=== PATIENT | female | born 1990 | race Caucasian/White ===

== ENCOUNTER 2016-09-22 23:49 | Emergency (ER) | payer MEDICAID ==
[~2016-09-22] VITALS: Ht 154.9 cm; Wt 85.0 kg
[~2016-09-22 23:49] MED LIST: CIPR500T4 PO; HYDR-762 PO; HYDR-906 PO; ONDA4TAB14 PO; ONDA4TAB35 PO; ONDA4TAB8 PO; PREN1TAB17 PO
[2016-09-22 23:57] VITALS: Ht 154.9 cm; Wt 85.0 kg
[2016-09-23] MEDS ORDERED: HYDROmorphONE 1 MG/ML SYG IV STA (00:14)
[2016-09-23] MEDS ORDERED: ONDANSETRON 4 MG INJ IV STA (00:14)
[2016-09-23 00:36] LABS: BASOPHILS % 0.3 % (0.0-2.0); EOSINOPHILS # 0.1 10^3/ul (0.0-0.5); EOSINOPHILS % 0.8 % (0.0-7.0); HEMATOCRIT 38.3 % (37.0-47.0); LYMPHOCYTES # 2.7 10^3/ul (0.8-2.9); LYMPHOCYTES % 17.6 % (15.0-51.0); MEAN CORPUSCULAR HEMOGLOBIN 32.7 pg (29.0-33.0); MEAN CORPUSCULAR VOLUME 96.1 fl (82.0-101.0); MEAN PLATELET VOLUME 7.6 fl (7.4-10.4); MONOCYTE # 0.6 10^3/ul (0.3-0.9); MONOCYTES % 3.7 % (0.0-11.0); NEUTROPHIL # 11.9 10^3/ul (1.6-7.5); NEUTROPHILS % 77.6 % (39.0-77.0); PLATELET COUNT 339 10^3/UL (140-440); RED BLOOD COUNT 3.98 10^6/ul (4.20-5.40); RED CELL DISTRIBUTION WIDTH 13.1 % (11.5-14.5); UNCORRECTED WBC 15.4 10^3/ul (4.8-10.8); WHITE BLOOD COUNT 15.4 10^3/ul (4.8-10.8)
[2016-09-23 00:37] LABS: CONDITION 1
[2016-09-23 00:48] LABS: ALBUMIN 4.7 g/dl (3.3-4.9)
[2016-09-23 00:50] LABS: CREATININE 0.46 mg/dl (0.44-1.00)
[2016-09-23 00:51] LABS: ALBUMIN/GLOBULIN RATIO 1.3; BILIRUBIN,INDIRECT 0.7 mg/dl (0-1.1); BILIRUBIN,TOTAL 0.7 mg/dl (0.2-1.3); CALCIUM 9.1 mg/dl (8.4-10.2); TOTAL PROTEIN 8.3 g/dl (6.1-8.1)
--- NOTE | 2016-09-23 01:07 | RADRPT ---
PROCEDURE: Ultrasound of the abdomen. CLINICAL INDICATION: Right upper quadrant pain. TECHNIQUE: Sonographic images of the abdomen were performed. COMPARISON: No pertinent prior examinations were submitted for comparison. FINDINGS: Liver: The liver is diffusely increased in echogenicity and mildly enlarged, measuring approximatel y 17.2 cm. The hepatic veins and portal veins are patent with appropriate directional flow. No intra hepatic ductal dilatation is seen. Gallbladder: A 3 cm stone is seen in the region of the gallbladder neck. There is no definite gall bladder wall thickening. The gallbladder is distended. There is trace pericholecystic free fluid. The common duct measures 4.4 mm. Pancreas: There is limited evaluation of the pancreatic body and tail. The visualized portions of the pancreas are unremarkable. Kidneys: The right kidney measures 10.7 cm. There is normal corticomedullary differentiation. Ther e is no evidence of renal calculus or hydronephrosis. IVC: The visualized portion of the inferior vena cava is unremarkable. Aorta: Normal in size. Free fluid: None. IMPRESSION: Distended gallbladder containing a stone and surrounding free fluid. Findings are suggestive of acu te cholecystitis. Hepatic steatosis and hepatomegaly. RPTAT: HIKT .Malcom Rao MD, MD Date Time Electronically viewed and signed by .Malcom Rao MD, on 09/23/2016 01:07 .T/
[2016-09-23] MEDS ORDERED: DICY20TA59 PO (01:33)
[2016-09-23] MEDS ORDERED: HYDR-902 PO (01:33)
[2016-09-23] MEDS ORDERED: AMLO5TAB4 PO (01:33)
--- NOTE | 2016-09-23 01:37 | ERD ---
ER Documentation Chief Complaint Date/Time DATE: 09/23/16 TIME: 01:34 Chief Complaint epigastic burning pain,hx gall stones HPI This 25-year-old female with a known history of gallstones complains of a gallbladder attack. She says the attack began an hour prior to arrival with sharp pain in the epigastric right upper quadrant consistent with the prior gallstone pain. She had nausea vomiting 1 no diarrhea no fever no chest pain shortness of breath. Patient did not know she is not supposed to eat fatty foods. No radiation of pain ROS All systems reviewed and are negative except as per history of present illness. Medications Home Meds Active Scripts Hydrocodone/Acetaminophen ([place] 10-325 Tablet) 1 Each Tablet, 1 TAB PO Q6H Y for PAIN, #20 TAB Prov:EVANS MCGUIRE DO 09/23/16 Dicyclomine Hcl* (Bentyl*) 20 Mg Tablet, 20 MG PO QID, #30 TAB Prov:EVANS MCGUIRE DO 09/23/16 Amlodipine Besylate* (Norvasc*) 5 Mg Tablet, 5 MG PO DAILY, #30 TAB Prov:EVANS MCGUIRE DO 09/23/16 Ondansetron Hcl* (Zofran*) 4 Mg Tablet, 4 MG PO Q6H for NAUSEA AND/OR VOMITING, #30 TAB Prov:Kaleigh Wilcox PA-C 07/17/16 Hydrocodone/Acetaminophen ([place] 5-325 Tablet) 1 Each Tablet, 1 TAB PO Q6H Y for PAIN, #7 TAB Prov:Kaleigh Wilcox PA-C 07/17/16 Ciprofloxacin Hcl* (Ciprofloxacin Hcl*) 500 Mg Tablet, 500 MG PO BID for 7 Days , TAB Prov:JENNIFER WALL NP 06/20/16 Ondansetron (Ondansetron Odt) 4 Mg Tab.rapdis, 4 MG PO Q8 Y for NAUSEA AND/OR VOMITING, #30 TAB Prov:JENNIFER WALL NP 06/20/16 Hydrocodone/Acetaminophen ([place] 5-325 Tablet) 1 Each Tablet, 1 TAB PO Q6H Y for PAIN, #20 TAB Prov:JENNIFER WALL NP 06/20/16 Ondansetron Hcl* (Zofran* ODT) 4 mg -ODT Tab.disper, 4 MG PO Q6 Y for NAUSEA AND /OR VOMITING, #10 TAB Prov:VICENTA NAVARRO 08/02/15 Hydrocodone Bit-Acetaminophen* ([place]*) 10-325 Mg Tablet, 1 TAB PO Q6 Y for PAIN , #20 TAB Prov:VICENTA NAVARRO. 08/02/15 Reported Medications Vit-Iron Fumarate-FA ( Tablet) 1 Each Tablet, 1 EACH PO DAILY 04/16/13 Allergies Allergies: Coded Allergies: No Known Allergy (Verified , 05/25/14) PMhx/Soc Medical and Surgical Hx: pt denies Surgical Hx History of Surgery: No Anesthesia Reaction: No Hx Neurological Disorder: No Hx Respiratory Disorders: No Hx Cardiac Disorders: No Hx Psychiatric Problems: No Hx Miscellaneous Medical Probl: Yes (history of gallstones) Hx Alcohol Use: No Hx Substance Use: No Hx Tobacco Use: No Smoking Status: Never smoker FmHx Family History: No coronary disease Physical Exam Vitals Vital Signs Date Time Temp Pulse Resp B/P Pulse Ox O2 Delivery O2 Flow Rate FiO2 09/23/16 00:29 73 20 134/98 100 Room Air 09/22/16 23:57 97.3 65 18 168/104 100 Physical Exam Const: Well-developed, well-nourished Head: Atraumatic, normocephalic Eyes: Normal Conjunctiva, PERRLA, EOMI, normal sclera, no nystagmus ENT: Normal External Ears, Nose and Mouth, moist mucus membranes. Neck: Full range of motion. No meningismus, no lymphadenopathy. Resp: Clear to auscultation bilaterally, no wheezing, rhonchi, rales Cardio: Regular rate and rhythm, no murmurs, S1 S2 present Abd: Soft, mild to moderate right upper quadrant epigastric tenderness , non distended. Normal bowel sounds, no guarding or rebound, no pulsitile abdominal masses or bruits Skin: No petechiae or rashes, no ecchymosis , no maculopapular rash Back: No midline or flank tenderness Ext: No cyanosis, or edema, FROM x 4, normal inspection, neurovascularly intact x 4 Neur: Awake and alert, STR 5/5 x 4, sensation intact x 4, no focal findings, cerebellum intact Psych: Normal Mood and Affect Result Diagram: 09/23/16 0015 09/23/16 0015 Results 24 hrs Laboratory Tests Test 09/23/16 00:15 Alanine Aminotransferase (ALT/SGPT) 84IU/L Albumin 4.7g/dl Albumin/Globulin Ratio 1.30 Alkaline Phosphatase 87IU/L Anion Gap 19 Aspartate Amino Transf (AST/SGOT) 44IU/L Basophils # 0.010^3/ul Basophils % 0.3% Blood Urea Nitrogen 9mg/dl Calcium Level 9.1mg/dl Carbon Dioxide Level 27mmol/L Chloride Level 100mmol/L Creatinine 0.46mg/dl Direct Bilirubin 0.00mg/dl Eosinophils # 0.110^3/ul Eosinophils % 0.8% Globulin 3.60g/dl Glucose Level 125mg/dl Hematocrit 38.3% Hemoglobin 13.0g/dl Indirect Bilirubin 0.7mg/dl Lipase 56U/L Lymphocytes # 2.710^3/ul Lymphocytes % 17.6% Mean Corpuscular Hemoglobin 32.7pg Mean Corpuscular Hemoglobin Concent 34.0g/dl Mean Corpuscular Volume 96.1fl Mean Platelet Volume 7.6fl Monocytes # 0.610^3/ul Monocytes % 3.7% Neutrophils # 11.910^3/ul Neutrophils % 77.6% Nucleated Red Blood Cells # 0.010^3/ul Nucleated Red Blood Cells % 0.0/100WBC Platelet Count 35739^3/UL Potassium Level 3.0mmol/L Red Blood Count 3.9810^6/ul Red Cell Distribution Width 13.1% Sodium Level 143mmol/L Total Bilirubin 0.7mg/dl Total Protein 8.3g/dl White Blood Count 15.410^3/ul Current Medications Medications (Trade) Dose Ordered Sig/Andrea Route PRN Reason Start Time Stop Time Status Last Admin Dose Admin Hydromorphone HCl (Dilaudid) 1 mg ONCE STAT IV 09/23/16 00:14 09/23/16 00:17 DC 09/23/16 00:19 Ondansetron HCl (Zofran Inj) 4 mg ONCE STAT IV 09/23/16 00:14 09/23/16 00:17 DC 09/23/16 00:19 Procedures/MDM PROCEDURE: Ultrasound of the abdomen. CLINICAL INDICATION: Right upper quadrant pain. TECHNIQUE: Sonographic images of the abdomen were performed. COMPARISON: No pertinent prior examinations were submitted for comparison. FINDINGS: Liver: The liver is diffusely increased in echogenicity and mildly enlarged, measuring approximately 17.2 cm. The hepatic veins and portal veins are patent with appropriate directional flow. No intrahepatic ductal dilatation is seen. Gallbladder: A 3 cm stone is seen in the region of the gallbladder neck. There is no definite gall bladder wall thickening. The gallbladder is distended. There is trace pericholecystic free fluid. The common duct measures 4.4 mm. Pancreas: There is limited evaluation of the pancreatic body and tail. The visualized portions of the pancreas are unremarkable. Kidneys: The right kidney measures 10.7 cm. There is normal corticomedullary differentiation. There is no evidence of renal calculus or hydronephrosis. IVC: The visualized portion of the inferior vena cava is unremarkable. Aorta: Normal in size. Free fluid: None. IMPRESSION: Distended gallbladder containing a stone and surrounding free fluid. Findings are suggestive of acute cholecystitis. Hepatic steatosis and hepatomegaly. RPTAT: HIKT .Malcom Rao MD, MD Date Time Electronically viewed and signed by .Malcom Rao MD, on 09/23/2016 01:07 .T/ CC: EVANS MCGUIRE DO Patient's pain is now resolved. Blood pressures remaining a bit high. Will treat her with some Norvasc at home. Patient has gallstones white count is slightly elevated. Liver function tests are relatively normal except for 1 abnormality of 84. Do not feel she has cholecystitis of bladder wall is not thick there is trace free fluid around the gallbladder no common bile duct dilation, and LFTs are relatively normal. We will have her follow-up with general surgery Departure Diagnosis: Primary Impression: Gallstones Additional Impression: Hypertension Hypertension type: essential hypertension Qualified Code: I10 - Essential hypertension Condition: Stable Patient Instructions: Gallstones, High Blood Pressure (Hypertension) Referrals: ALDO DUFFY M.D., APOSTOLOS A. DO Sep 23, 2016 01:36
[2016-09-23] MEDS ORDERED: NICARDipine HCL 30 MG CAPSULE PO ONE (02:00)
[2016-09-23 02:15] VITALS: BP 149/96; PULSE 61; RESP 18; TEMP 98.6
== END 2016-09-23 02:20 | disposition home or self-care (01) ==
LOC: E/R 23:49
DX: K80.20 Calculus of gallbladder without cholecystitis without obstruction (principal); I10 Essential (primary) hypertension; R40.2142 Coma scale, eyes open, spontaneous, at arrival to emergency department; R40.2252 Coma scale, best verbal response, oriented, at arrival to emergency department; R40.2362 Coma scale, best motor response, obeys commands, at arrival to emergency department
CPT/HCPCS: 36415; 76705; 80053; 83690; 85025; 96374; 96375; J1170; J2405; Z7502; Z7610

== ENCOUNTER 2016-09-24 03:06 | Inpatient (IN) | payer MEDICAID ==
[~2016-09-24] VITALS: Ht 162.6 cm; Wt 85.0 kg
[2016-09-24] VITALS (11 sets, daily range): BP systolic 116–164; BP diastolic 79–104; PULSE 62–78; RESP 12–30; TEMP 97.8; Ht 162.6 cm; Wt 85.0 kg
[~2016-09-24 03:06] MED LIST changes: +AMLO5TAB4 PO; +DICY20TA59 PO; +HYDR-902 PO
[2016-09-24] MEDS ORDERED: ONDANSETRON 4 MG INJ IV STA ×2 (03:52→05:27)
[2016-09-24] MEDS ORDERED: SOD CHLORIDE 0.9% 1,000 ML IV STA (03:52)
[2016-09-24] MEDS ORDERED: morphine 4 MG/ML VIAL IV STA (03:52)
[2016-09-24] MEDS ORDERED: ACETAMINOPHEN 325 MG TAB PO PRN (04:30)
[2016-09-24] MEDS ORDERED: ONDANSETRON 4 MG INJ IV PRN ×3 (04:30→18:00)
[2016-09-24] MEDS ORDERED: AMPICILLIN/SULB 3 GM/NS (PMX) 100 ML IVPB ONE (04:30)
[2016-09-24] MEDS ORDERED: HYDROmorphONE 1 MG/ML SYG IV STA ×2 (04:34→05:27)
--- NOTE | 2016-09-24 04:45 | RADRPT ---
PROCEDURE: Chest. CLINICAL INDICATION: Chest pain. TECHNIQUE: Single frontal view of the chest was obtained. COMPARISON: None. FINDINGS: The cardiac silhouette is within normal limits. The aortic arch is unremarkable. There is no focal consolidation, vascular congestion or pleural effusion. There is no pneumothorax. IMPRESSION: No evidence for active cardiopulmonary disease. .Bernabe Tinoco MD, MD Date Time Electronically viewed and signed by .Bernabe Tinoco MD, on 09/24/2016 04:45 .T/
--- NOTE | 2016-09-24 04:48 | ERA ---
ER Documentation Chief Complaint Date/Time DATE: 09/24/16 TIME: 04:46 Chief Complaint MID UPPER ABD PAIN SINCE 8PM LAST NIGHT +N/V HX GALLSTONES HPI Patient is a 25-year-old female with no medical problems who presents with abdominal pain. She had midepigastric abdominal pain which started yesterday. She is vomiting bile. She has no fevers. She has had no treatment as of yet. She does not currently have a primary doctor. Upon review of old medical records the patient has multiple visits to the ER for abdominal pain and biliary colic. She was seen yesterday in the emergency department and had an ultrasound which showed acute cholecystitis. ROS All systems reviewed and are negative except as per history of present illness. Medications Home Meds Active Scripts Hydrocodone/Acetaminophen ([place] 10-325 Tablet) 1 Each Tablet, 1 TAB PO Q6H Y for PAIN, #20 TAB Prov:EVANS MCGUIRE DO 09/23/16 Dicyclomine Hcl* (Bentyl*) 20 Mg Tablet, 20 MG PO QID, #30 TAB Prov:EVANS MCGUIRE DO 09/23/16 Amlodipine Besylate* (Norvasc*) 5 Mg Tablet, 5 MG PO DAILY, #30 TAB Prov:EVANS MCGUIRE DO 09/23/16 Ondansetron Hcl* (Zofran*) 4 Mg Tablet, 4 MG PO Q6H for NAUSEA AND/OR VOMITING, #30 TAB Prov:Kaleigh Wilcox PA-C 07/17/16 Hydrocodone/Acetaminophen ([place] 5-325 Tablet) 1 Each Tablet, 1 TAB PO Q6H Y for PAIN, #7 TAB Prov:Kaleigh Wilcox PA-C 07/17/16 Ciprofloxacin Hcl* (Ciprofloxacin Hcl*) 500 Mg Tablet, 500 MG PO BID for 7 Days , TAB Prov:JENNIFER WALL NP 06/20/16 Ondansetron (Ondansetron Odt) 4 Mg Tab.rapdis, 4 MG PO Q8 Y for NAUSEA AND/OR VOMITING, #30 TAB Prov:JENNIFER WALL NP 06/20/16 Hydrocodone/Acetaminophen ([place] 5-325 Tablet) 1 Each Tablet, 1 TAB PO Q6H Y for PAIN, #20 TAB Prov:JENNIFER WALL YARON Martinez [employer] 06/20/16 Ondansetron Hcl* (Zofran* ODT) 4 mg -ODT Tab.disper, 4 MG PO Q6 Y for NAUSEA AND /OR VOMITING, #10 TAB Prov:VICENTA NAVARROAlissa 08/02/15 Hydrocodone Bit-Acetaminophen* ([place]*) 10-325 Mg Tablet, 1 TAB PO Q6 Y for PAIN , #20 TAB Prov:VICENTA NAVARRO. 08/02/15 Reported Medications Vit-Iron Fumarate-FA ( Tablet) 1 Each Tablet, 1 EACH PO DAILY 04/16/13 Allergies Allergies: Coded Allergies: No Known Allergy (Verified , 05/25/14) PMhx/Soc History of Surgery: No Anesthesia Reaction: No Hx Neurological Disorder: No Hx Respiratory Disorders: No Hx Cardiac Disorders: No Hx Psychiatric Problems: No Hx Miscellaneous Medical Probl: Yes (history of gallstones) Hx Alcohol Use: No Hx Substance Use: No Hx Tobacco Use: No Smoking Status: Never smoker FmHx Family History: diabetes Physical Exam Vitals Vital Signs Date Time Temp Pulse Resp B/P Pulse Ox O2 Delivery O2 Flow Rate FiO2 09/24/16 04:44 65 17 154/118 99 Room Air 09/24/16 04:00 97.8 66 18 186/124 100 Room Air 09/24/16 03:09 98.4 84 22 189/110 99 Physical Exam Const: Moderate distress secondary to pain and vomiting Head: Atraumatic Eyes: Normal Conjunctiva ENT: Normal External Ears, Nose and Mouth. Neck: Full range of motion..~ No meningismus. Resp: Clear to auscultation bilaterally Cardio: Regular rate and rhythm, no murmurs Abd: Midepigastric tenderness to palpation with rebound and guarding Skin: No petechiae or rashes Back: No midline or flank tenderness Ext: No cyanosis, or edema Neur: Awake and alert Psych: Normal Mood and Affect Results 24 hrs Current Medications Medications (Trade) Dose Ordered Sig/Andrea Route PRN Reason Start Time Stop Time Status Last Admin Dose Admin Sodium Chloride (NS) 1,000 ml @ 1,000 mls/hr Q1H STAT IV 09/24/16 03:52 09/24/16 04:51 09/24/16 04:17 Morphine Sulfate (morphine) 4 mg ONCE STAT IV 09/24/16 03:52 09/24/16 03:54 DC 09/24/16 04:16 Ondansetron HCl 4 mg 4 mg ONCE STAT IV 09/24/16 03:52 09/24/16 03:54 DC 09/24/16 04:16 Ampicillin Sodium/ Sulbactam Sodium (Unasyn 3gm/NS (Pmx)) 100 ml @ 100 mls/hr ONCE ONCE IVPB 09/24/16 04:30 09/24/16 05:29 09/24/16 04:38 Ondansetron HCl (Zofran Inj) 4 mg BRIDGE ORDER PRN IV NAUSEA AND/OR VOMITING 09/24/16 04:30 09/25/16 04:29 Acetaminophen (Tylenol Tab) 650 mg ER BRIDGE PRN PO MILD PAIN/FEVER 09/24/16 04:30 09/25/16 04:29 Hydromorphone HCl (Dilaudid) 1 mg ONCE STAT IV 09/24/16 04:34 09/24/16 04:35 DC 09/24/16 04:38 Procedures/MDM EKG read by me: Rate/Rhythm: Regular rate and rhythm at a normal rate Intervals: Normal Impression: No evidence of ischemia or arrhythmia Chest X-ray 1V Interpreted by me: Soft Tissue: No acute abnormalities Bones: No acute abnormalities Mediastinum/Cardiac Silhouette/Lungs: No acute abnormalities Ultrasound done yesterday shows acute cholecystitis. Patient is a 25-year-old female with no medical problems who presents with acute cholecystitis. The patient has laboratory studies pending. I spoke with Dr. Michelle who is a surgeon on-call who will see the patient in consultation for cholecystectomy. I spoke with Dr. Campos from the panel team for admission as the patient has [employer] insurance and does not currently have a primary doctor. The patient will be admitted to a medical surgical bed. Departure Diagnosis: Primary Impression: Acute cholecystitis Additional Impressions: Gallstones Abdominal pain Qualified Code: R10.13 - Epigastric pain Condition: RAJAT Kumar MD Sep 24, 2016 04:48
[2016-09-24] MEDS ORDERED: LIDOCAINE 1% (MDV) 20 ML INJ SC ONE (05:00)
[2016-09-24 05:34] LABS: BASOPHILS % 0.1 % (0.0-2.0); EOSINOPHILS # 0.1 10^3/ul (0.0-0.5); EOSINOPHILS % 0.6 % (0.0-7.0); HEMATOCRIT 40.1 % (37.0-47.0); HEMOGLOBIN 13.6 g/dl (12.0-16.0); LYMPHOCYTES # 2.2 10^3/ul (0.8-2.9); LYMPHOCYTES % 16.2 % (15.0-51.0); MEAN CORPUSCULAR HEMOGLOBIN 32.6 pg (29.0-33.0); MEAN CORPUSCULAR VOLUME 95.8 fl (82.0-101.0); MEAN PLATELET VOLUME 7.8 fl (7.4-10.4); MONOCYTE # 0.5 10^3/ul (0.3-0.9); MONOCYTES % 3.9 % (0.0-11.0); NEUTROPHIL # 10.7 10^3/ul (1.6-7.5); NEUTROPHILS % 79.2 % (39.0-77.0); PLATELET COUNT 341 10^3/UL (140-440); RED BLOOD COUNT 4.18 10^6/ul (4.20-5.40); RED CELL DISTRIBUTION WIDTH 13.3 % (11.5-14.5); UNCORRECTED WBC 13.5 10^3/ul (4.8-10.8); WHITE BLOOD COUNT 13.5 10^3/ul (4.8-10.8)
[2016-09-24 05:41] LABS: CONDITION 1
[2016-09-24 05:44] LABS: INR 0.96; PROTIME 12.8 Sec (12.2-14.2)
[2016-09-24 05:45] LABS: PARTIAL THROMBOPLASTIN TIME 32.1 Sec (25.0-35.0)
[2016-09-24 05:47] LABS: ALBUMIN/GLOBULIN RATIO 1.25; ANION GAP 18 (8-16)
[2016-09-24 05:55] LABS: ALANINE AMINOTRANSFERASE 80 IU/L (13-69); ALBUMIN 4.5 g/dl (3.3-4.9); ALKALINE PHOSPHATASE 91 IU/L (42-121); ASPARTATE AMINO TRANSFERASE 41 IU/L (15-46); BILIRUBIN,INDIRECT 0.3 mg/dl (0-1.1); BILIRUBIN,TOTAL 0.3 mg/dl (0.2-1.3); BLOOD UREA NITROGEN 12 mg/dl (7-20); CALCIUM 8.6 mg/dl (8.4-10.2); CARBON DIOXIDE 28 mmol/L (21-31); CHLORIDE 102 mmol/L (97-110); CREATININE 0.51 mg/dl (0.44-1.00); GLUCOSE 120 mg/dl (70-220); POTASSIUM 3.9 mmol/L (3.5-5.1); SODIUM 144 mmol/L (135-144); TOTAL PROTEIN 8.1 g/dl (6.1-8.1)
[2016-09-24] MEDS ORDERED: LABETALOL HCL 20MG INJ IV ONE (06:00)
[2016-09-24 06:11] LABS: TROPONIN-I < 0.012 ng/ml (0.00-0.12)
--- NOTE | 2016-09-24 06:12 | HP ---
DATE OF ADMISSION: 09/24/2016 PRESENTING COMPLAINT: Abdominal pain. HISTORY OF PRESENTING COMPLAINT: This is a 35-year-old female who presented to the emergency room f rom home with complaints of right upper quadrant abdominal pain and associated vomiting. The patien t was here 2 days ago and was assessed and was found with similar symptoms. At that time, the ER do ctor found her to have high blood pressure as well as concerns for probable cholecystitis, but he wa s not concerned, so she was discharged to home to follow up as an outpatient with general surgery; h owever, the patient returns today with continued pain, inability to keep anything down, as well as a lot of nausea and biliary vomiting. Her last ultrasound, 09/23/2016, did show acute cholecystitis, fatty liver, and hepatomegaly. She is being admitted at this time for acute cholecystitis and inpa tient workup. PAST MEDICAL HISTORY: The patient has a history of high blood pressure, but she is not taking medic ation for that. The patient does report high blood pressure in ; however, she is not on an y blood pressure medicine. This seems to be undiagnosed. The patient is not aware of a history of high blood pressure and does not take any medication for that. PAST SURGICAL HISTORY: The patient denies. ALLERGIES: NO KNOWN DRUG ALLERGIES. SOCIAL HISTORY: Denies tobacco, alcohol, or illicit drug use. FAMILY HISTORY: Positive for gallstones. REVIEW OF SYSTEMS: I did perform a 12-point review of systems. Pertinent findings are as noted in HPI. PHYSICAL EXAMINATION: VITAL SIGNS: Temperature 97.8, pulse 64, respirations 16, blood pressure 169/97, saturations 96% on room air. When the patient first came in, her blood pressure went as high as 189/110. GENERAL: The patient is currently comfortable, alert and oriented, in no distress. HEENT: Head is normocephalic. Pupils are equal and reactive. There is no scleral jaundice. No co njunctival pallor. Mucous membranes are moist. NECK: Supple, nontender. CHEST: Clear to auscultation. CARDIOVASCULAR: S1 and S2, no added sounds or murmurs. ABDOMEN: She is slightly tender in her right upper quadrant as well as epigastric region with a lit tle bit of guarding. Overall though, her abdomen is soft, nondistended, normoactive bowel sounds. EXTREMITIES: There is no lower extremity edema. SKIN: Devoid of rash or jaundice. PSYCHIATRIC: She was cooperative with exam. LABORATORY VALUES: On her complete metabolic profile, notable findings are hypokalemia of 3.0, anio n gap slightly elevated at 19, and her ALT was also elevated at 84. Her alkaline phosphatase was no rmal. Total protein and globulin levels were also elevated. On hematology, she has a white count o f 15,000. This is worse from yesterday when it was 13,000, but hemoglobin and platelet counts are a ll normal. Coag profile was not assessed on this visit. Urinalysis as well was not assessed on thi s visit. IMAGING: Chest x-ray today showed no evidence of active cardiopulmonary disease. Ultrasound from has been reported in the HPI. IMPRESSION: A 25-year-old female with a chronic history of gallstones, admitted for the followin. Acute cholecystitis. 2. Elevated high blood pressure, uncontrolled. 3. Hypokalemia, likely secondary to vomiting. PLAN: The plan is to admit to med/surg floor, commence empiric antibiotics, get general surgical re view for cholecystitis and go from there. Supportive care will include pain control, antiemet ics, and antipyretics. She will be started on oral antihypertensives to help with blood pressure co ntrol. She will also have intravenous hydralazine for p.r.n. I will replace her electrolytes as we ll and monitor closely while she is in house. This has been discussed with her. Questions have been answered. Admission time has been about 40 m inutes. Dictated By: KP MARSHALL MD, BA/PIETER Conf#: [id number] DID#: [id number]
[2016-09-24] MEDS ORDERED: morphine 2 MG INJ IV PRN (07:00)
[2016-09-24] MEDS ORDERED: hydrALAzine 20 MG INJ IV PRN (07:00)
[2016-09-24] MEDS ORDERED: DEXTROSE 5%-0.45% NACL 1,000 ML IV SCH (07:00)
[2016-09-24] MEDS ORDERED: FAMOTIDINE 20 MG INJ IV SCH (09:00)
[2016-09-24] MEDS: HYDROCHLOROTHIAZIDE 25 MG TAB PO SCH (09:51)
[2016-09-24] MEDS ORDERED: HYDROCODONE/APAP (5/325) TAB PO PRN ×4 (12:00→19:00)
[2016-09-24] MEDS ORDERED: HYDROmorphONE 1 MG/ML SYG IV PRN ×3 (12:00→19:00)
[2016-09-24] MEDS: HYDROmorphONE 1 MG/ML SYG IV PRN ×4 (12:16→22:25)
--- NOTE | 2016-09-24 12:22 | CONS ---
Date/Time of Note Date/Time of Note DATE: 09/24/16 TIME: 12:21 Assessment/Plan Assessment/Plan Additional Assessment/Plan [facility] INITIAL INPATIENT CONSULTATION NOTE ASSESSMENT AND PLAN: A very-pleasant 25-year-old young lady with BMI 32.2 and otherwise healthy without known other medical issues, who was admitted [facility] through ED on 09/23/2016 with signs and symptoms consistent with acute cholecystitis versus symptomatic biliary. Patient can benefit from laparoscopic cholecystectomy. I explained the anatomy as well as the natural history and pathophysiology of this disease to the patient (no family present during my discussions with the patient) in detail and reviewed the reasoning behind my recommendations. Patient appeared to understand and agree with the plans. With above assessment, I've recommended the followin. To the operating room the next available semi elective time slot. Thank you very much for having me involved in the care of this very pleasant young lady and I'm certain her wonderful family. I will continue to follow her along with you closely and will be available to answer any questions at area code [phone]. TOTAL VISIT TIME: 45 minutes of which more than half was spent in [id number] discussion with the patient, as well as coordination of care between multiple physicians and providers. Disclaimer: Inadvertent spelling and grammatical errors are likely due to EHR/ dictation software use and do not reflect on the quality of delivered patient care. Also, please note that the electronic time recorded on this node does not necessarily reflect the actual time of the visit. PLACE OF SERVICE: [facility], second Floor [facility] DATE OF CONSULTATION: 09/24/2016 HISTORY OF PRESENT ILLNESS: The patient is a very pleasant 25-year-old young lady with BMI 32.2 and otherwise healthy without known other medical issues, who was admitted to [facility] through ED on 09/23/2016 with right upper quadrant abdominal pain that was 10 out of 10 in severity and associated with nausea and vomiting. Multiple prior episodes of pain for the last 6 years. Hypertension and -induced hypertension as comorbidities. No prior surgeries in the abdomen. Abdominal imaging as well as laboratory values were consistent with acute cholecystitis. PAST MEDICAL HISTORY 1. Hypertension 2. -induced hypertension 3. BMI 32.2 PAST SURGICAL HISTORY None ALLERGIES: NO KNOWN DRUG ALLERGIES MEDICATIONS None SOCIAL HISTORY: The patient lives with family. - Tob; - ETOH; - IVDU FAMILY HISTORY: Gallstones. There are no other significant medical, surgical or oncologic issues in the family as reported by the patient or reflected in the chart. REVIEW OF SYSTEMS: No other pertinent positives or pertinent negatives in a complete 14 point review of systems. PHYSICAL EXAMINATION GENERAL: The patient appears to be a very pleasant young lady of descent lying in bed, appearing stated age, BMI 32.2 and in mild distress. VITAL SIGNS: AVSS (please also see below) HEENT: Normocephalic and atraumatic. Extraocular muscles and hearing are grossly intact bilaterally and symmetrically. Sclerae are nonicteric. Oral cavity is clear; oral mucosa appear to be pink and moist. Dentition: fair. NECK: Supple. There is no lymphadenopathy or JVD. There is no submental, submandibular or supraclavicular lymphadenopathy. CHEST: Rises symmetrically with each breath; patient is breathing comfortably. There are no audible wheezes, rales or rhonchi on the gross exam. HEART: Pulse is regular and palpable on the right wrist. Capillary refill is normal. Carotid pulses are palpable bilaterally and symmetrically in the neck. EXTREMITIES: Lower extremities contain no pitting edema around the ankles bilaterally and symmetrically. ABDOMEN: Abdomen is soft, mild to moderately tender in the right upper quadrant and nondistended. No evidence of ascites, organomegaly, caput medusae , engorged subcutaneous veins, or other abnormalities. There are no peritoneal signs or guarding. SKIN: Appears to be pink and feels warm to touch. NEUROLOGIC: Awake, alert, and follows commands appropriately. LABORATORY DATA: See below IMAGING: See electronic chart. Please note that I've personally reviewed all pertinent available images and I agree in general with their overall reported findings. Consultation Date/Type/Reason Admit Date/Time Sep 24, 2016 at 04:10 Social History Smoking Status: Never smoker Exam/Review of Systems Vital Signs Vitals Vital Signs Date Time Temp Pulse Resp B/P Pulse Ox O2 Delivery O2 Flow Rate FiO2 09/24/16 07:50 97.9 68 20 164/92 95 09/24/16 06:57 Room Air Intake and Output 09/23/16 09/23/16 09/24/16 15:00 23:00 07:00 Intake Total 1100 ml Balance 1100 ml Results Result Diagram: 09/24/1652109/24/16521 Results 24 hrs Laboratory Tests Test 09/24/16 05:22 Activated Partial Thromboplast Time 32.1 Alanine Aminotransferase (ALT/SGPT) 80 H Albumin 4.5 Albumin/Globulin Ratio 1.25 Alkaline Phosphatase 91 Anion Gap 18 H Aspartate Amino Transf (AST/SGOT) 41 Basophils # 0.0 Basophils % 0.1 Blood Urea Nitrogen 12 Calcium Level 8.6 Carbon Dioxide Level 28 Chloride Level 102 Creatinine 0.51 Direct Bilirubin 0.00 Eosinophils # 0.1 Eosinophils % 0.6 Globulin 3.60 H Glucose Level 120 Hematocrit 40.1 Hemoglobin 13.6 INR International Normalized Ratio 0.96 Indirect Bilirubin 0.3 Lipase 49 Lymphocytes # 2.2 Lymphocytes % 16.2 Magnesium Level 2.0 Mean Corpuscular Hemoglobin 32.6 Mean Corpuscular Hemoglobin Concent 34.0 Mean Corpuscular Volume 95.8 Mean Platelet Volume 7.8 Monocytes # 0.5 Monocytes % 3.9 Neutrophils # 10.7 H Neutrophils % 79.2 H Nucleated Red Blood Cells # 0.0 Nucleated Red Blood Cells % 0.0 Platelet Count 341 Potassium Level 3.9 Prothrombin Time 12.8 Prothrombin Time Ratio 1.0 Red Blood Count 4.18 L Red Cell Distribution Width 13.3 Sodium Level 144 Total Bilirubin 0.3 Total Protein 8.1 Troponin I < 0.012 White Blood Count 13.5 H Medications Medications Current Medications Hydrochlorothiazide (Hydrochlorothiazide) 25 mg DAILY PO Last administered on 09:51; Admin Dose 25 MG; Start 09/24/16 at 09:00 Hydralazine HCl (Apresoline) 10 mg Q6H PRN IV SBP>160MMHG; Start 09/24/16 at 07: 00 Morphine Sulfate (morphine) 2 mg Q4H PRN IV pain Last administered on 09/24/16 07:54; Admin Dose 2 MG; Start 09/24/16 at 07:00 Ondansetron HCl 4 mg 4 mg Q6H PRN IV NAUSEA AND/OR VOMITING Last administered on 09/24/16 10:02; Admin Dose 4 MG; Start 09/24/16 at 07:00 Dextrose/Sodium Chloride (D5-1/2ns) 1,000 ml @ 100 mls/hr Q10H IV Last administered on 09/24/16 07:54; Admin Dose 100 MLS/HR; Start 09/24/16 at 07:00 Famotidine (Pepcid Iv) 20 mg BID IV Last administered on 09/24/16 09:49; Admin Dose 20 MG; Start 09/24/16 at 09:00 Acetaminophen/ Hydrocodone Bitart ([place] (5/325)) 1 tab Q4H PRN PO PAIN LEVEL 4 -6; Start 09/24/16 at 12:00 Acetaminophen/ Hydrocodone Bitart ([place] (5/325)) 2 tab Q4H PRN PO PAIN LEVEL 7 -10; Start 09/24/16 at 12:00 Hydromorphone HCl (Dilaudid) 0.5 mg Q2 PRN IV PAIN (4-7/10); Start 09/24/16 at 12:00 Hydromorphone HCl (Dilaudid) 1 mg Q2 PRN IV PAIN (8-10/10) Last administered on 09/24/16 12:16; Admin Dose 1 MG; Start 09/24/16 at 12:00 ALDO DUFFY M.D. Sep 24, 2016 12:22
[2016-09-24 14:08] LABS: ADD UMIC YES; URINE BILIRUBIN (Dip) NEGATIVE (NEGATIVE); URINE BLOOD (Dip) 3+ (NEGATIVE); URINE COLOR LT. RED (YELLOW); URINE KETONES (Dip) TRACE (NEGATIVE); URINE LEUKOCYTE ESTERASE (Dip) NEGATIVE (NEGATIVE); URINE NITRITE (Dip) NEGATIVE (NEGATIVE); URINE TOTAL PROTEIN (Dip) TRACE (NEGATIVE); URINE UROBILINOGEN (Dip) 0.2 E.U./dL (0.1-1.0)
[2016-09-24 14:20] LABS: BACTERIA,URINE FEW; URINE RBCS >200 /HPF (0)
[2016-09-24] MEDS ORDERED: BUPIVACAINE 0.25%/EPI (SDV) 30 ML INJ ONE (15:41)
[2016-09-24] MEDS ORDERED: MIDAZOLAM 1 MG/ML 2 ML INJ ONE (17:07)
[2016-09-24] MEDS ORDERED: PHENYLephrine (100 MCG/ML) 5ML SYG ONE (17:20)
[2016-09-24] MEDS ORDERED: PIPER-TAZO 3.375 GM IV (PMX) 100 ML ONE (17:20)
--- NOTE | 2016-09-24 17:21 | OPR ---
Date/Time of Note Date/Time of Note DATE: 09/24/16 TIME: 17:20 Operative Report Operative Findings [facility] INPATIENT OPERATIVE NOTE PLACE OF SERVICE: [facility] DATE OF SURGERY: 09/24/2016 PREOPERATIVE DIAGNOSIS: 1. Symptomatic cholelithiasis, possible early acute cholecystitis 2. -induced hypertension 3. BMI 32.2 4. Hypertension POSTOPERATIVE DIAGNOSIS: 1. Acute cholecystitis 2. -induced hypertension 3. BMI 32.2 4. Hypertension OPERATION: 1. Laparoscopic cholecystectomy SURGEON: Adlo Michelle M.D. IT ENGINEER: None ANESTHESIA: General endotracheal tube anesthesia ANESTHESIOLOGIST: Paulo Winn M.D. BRIEF SUMMARY: A somewhat challenging but otherwise uncomplicated laparoscopic cholecystectomy was performed with findings of early acute cholecystitis. BRIEF HISTORY: The patient is a very pleasant 25-year-old young lady with BMI 32.2 and otherwise healthy without known other medical issues, who was admitted to [facility] through ED on 09/23/2016 with signs and symptoms consistent with acute cholecystitis versus symptomatic biliary. Note that patient has had pain for the last 6 years and has had multiple attempts at accessing care through the ED. I met with the patient (no family present during any of my discussions with the patient) and counseled her regarding the possible options of treatment, and I strongly suggested a laparoscopic, possible open cholecystectomy. We reviewed the operation in detail as well as the risks, benefits, alternatives, and expected outcomes of this operation. After careful consideration of all the risks, benefits, and alternatives, the patient and family appeared to understand those risks and wished to proceed with surgery. For a detailed report of my consultation with patient, please refer to my separate consultation note. STATEMENT OF THE INFORMED CONSENT: The patient appeared to understand the risks of the operation to include, but not be limited to risk of postoperative pain and scar tissue, possible infection or bleeding requiring other interventions such as opening the wound, placement of drainage catheters, or other operative interventions; possible injury to surrounding to structures including bowel, bladder, bile duct, or blood vessels, or solid organs such as liver, kidney, or pancreas requiring other interventions or procedures; possible leakage of bile from surgical clip sites, suture lines, or worse, from common bile duct injury, causing significant increase in morbidity and mortality and requiring multiple interventions including but not limited to, placement of drainage catheters, imaging studies, as well as operative interventions; possible other source of sepsis such as urinary tract infections or pneumonias, or other sources of potentially life threatening problems such as deep venous thrombus formation causing pulmonary embolism, myocardial arrhythmias and infarctions, and even . We also briefly discussed the potential need to receive blood products and their potential complications of blood transfusion reactions, transmission of infections, or other complications. After careful consideration of all their options, the patient appeared to understand and wished to proceed with surgery. DESCRIPTION OF PROCEDURE: After obtaining informed consent, the patient was brought into the operating room and was placed in a normal supine position, where successful general endotracheal tube anesthesia was performed. The patient 's abdominal skin was prepped and draped, from the nipple line down to the level of the groins, in the usual sterile fashion. Intravenous access was already in place, and appropriately chosen and dosed prophylactic intravenous antimicrobials were administered. We then called a surgical time-out where patient's identification, date of , nature of the operation, allergies, presence of intravenous antimicrobials, presence of needed equipment, and any other concerns were reviewed and agreed upon by all members of the operating room team. We then started the operation by placing a 5-mm skin incision in the right- upper quadrant, subcostal midclavicular line, and introduced a 5-mm [employer] trocar into the peritoneal space, visualizing all the layers of the abdominal wall as we entered. Note that there was no indication of any injury to underlying structures once we entered the peritoneum. We insufflated the abdominal cavity to a maximum pressure of 15 mmHg, again, confirmed lack of any injury to underlying structures prior to visualizing the rest of the abdominal cavity. We found the fundus of the gallbladder to be visible. Gallbladder could not be seen. There was no evidence of malignancy. No evidence of calcifications or significant issues with adhesions, or other abnormalities. The liver appeared to be grossly normal. With this information, we went ahead and placed the other trocars under direct visualization, after injecting their sites with 0.25% Marcaine with epinephrine , placing a 5-mm trocar in the umbilical midline area, a 5-mm trocar in the right anterior axillary line, and a 12-mm trocar in the midline subxiphoid region. With our instruments in place, we had excellent visualization and access to the right-upper quadrant. We placed an OG tube due to distended stomach to improve exposure. We then grasped the fundus of the gallbladder after emptying the content (bile) with a laparoscopic needle and pointed it up towards the right-upper quadrant. We were then able to grasp the infundibulum after dissecting it out from surrounding dense adhesions of the omentum and pull it out in order to expose the critical triangle of Calot. We then placed our usual serosal cuts along the long axis of the gallbladder 1 cm away from its attachment to the liver bed up towards the fundus, and then joined these 2 lines under the infundibulum, taking care not to deliver any energy to underlying structures. To maximize degree of safety of the operation, we took the gallbladder top down using cautery. Note that the gallbladder was fairly intrahepatic. The significant amount of scarring contributed to the more than usual blood loss for this operation. We then performed meticulous dissection to identify the cystic duct and cystic artery, but there was significant amount of scarring in this area and it was not advisable to continue dissection without increasing risk to injury to underlying structures. We therefore used one firing of the Bokeelia Flex vascular (white) load 60 mm to transect across the bundle that was going into the gallbladder. We then delivered the gallbladder out inside of an EndoCatch bag through the 12-mm trocar site with enlarging the fascia and without contaminating the wound. The gallbladder was sent to Pathology for evaluation. Returning to the abdominal cavity, we ensured that there was adequate hemostasis and bile-stasis prior to removal of all of or equipment, including the pneumoperitoneum and the Ray Alex that we had used during the operation to assist with elevating the liver for exposure, and then reapproximating the 12- mm trocar site with [id number] 0 Vicryl sutures, followed by washing the wounds with copious amounts of normal saline, and then reapproximating the skin using interrupted 4-0 Monocryl sutures. Light dressing was then applied. At the end of the operation, both the sponge count and needle count were reportedly correct x2. The patient tolerated the procedure without any reported complications. ESTIMATED BLOOD LOSS: 50 mL BLOOD OR BLOOD PRODUCT TRANSFUSIONS: None to my knowledge. SPECIMENS: 1. Gallbladder COMPLICATIONS: None. DISPOSITION: Recovery area. Disclaimer: Inadvertent spelling and grammatical errors are likely due to EHR/ dictation software use and do not reflect on the quality of delivered patient care. ALDO MICHELLE M.D. Sep 24, 2016 17:21 serosal cuts along the long axis of the gallbladder 1 cm away from its attachment to the liver bed up towards the fundus, and then joined these 2 lines under the infundibulum, taking care not to deliver any energy to underlying structures. To maximize a degree of safety of the operation, we took the gallbladder top down using cautery. Note that we used the extra 5 mm trocar in the left mid quadrant to give us better exposure due to the significant amount of intra-abdominal fat and bowel content that was present. We then performed meticulous dissection to identify and circumferentially isolate both the cystic duct and cystic artery, prior to transecting them between 2 surgical Endoclips, proximally and one distally on the cystic artery , and 3 surgical endoclips proximally and one distally on the cystic duct, transecting them using cold scissors and only after making sure that these were the only 2 structures going into the gallbladder. We then shaved the gallbladder off the gallbladder bed using cautery, and then delivered it out inside of an EndoCatch bag through the 12-mm trocar site with enlarging the fascia and without contaminating the wound. The gallbladder was sent to Pathology for evaluation. Returning to the abdominal cavity, we ensured that there was adequate hemostasis and bile-stasis prior to removal of all of or equipment, including the pneumoperitoneum, and then reapproximating the 12-mm trocar site with figure -of-eight 0 Vicryl sutures, followed by washing the wounds with copious amounts of normal saline, and then reapproximating the skin using interrupted 4-0 Monocryl sutures. Light dressing was then applied. At the end of the operation, both the sponge count and needle count were reportedly correct x2. The patient tolerated the procedure without any reported complications. ESTIMATED BLOOD LOSS: 10 mL BLOOD OR BLOOD PRODUCT TRANSFUSIONS: None to my knowledge. SPECIMENS: 1. Gallbladder COMPLICATIONS: None. DISPOSITION: Recovery area. Disclaimer: Inadvertent spelling and grammatical errors are likely due to EHR/ dictation software use and do not reflect on the quality of delivered patient care. ALDO MICHELLE M.D. Sep 24, 2016 17:21
[2016-09-24] MEDS ORDERED: MEPERIDINE 25 MG INJ IV PRN (18:00)
[2016-09-24] MEDS ORDERED: DIPHENHYDRAMINE 50 MG INJ IV PRN (18:00)
[2016-09-24] MEDS ORDERED: morphine (1 MG/ML) 10ML SYRINGE IV PRN (18:00)
[2016-09-24] MEDS ORDERED: ROCURONIUM 50 MG INJ ONE (18:40)
[2016-09-24] MEDS ORDERED: PROPOFOL 20 ML ONE (18:40)
[2016-09-24] MEDS ORDERED: GLYCOPYRROLATE 0.4 MG INJ ONE (18:40)
[2016-09-24] MEDS ORDERED: ONDANSETRON 4 MG INJ ONE (18:40)
[2016-09-24] MEDS ORDERED: LIDOCAINE 2% (SDV) 5 ML INJ ONE (18:40)
[2016-09-24] MEDS ORDERED: NEOSTIGMINE 3 MG/3 ML SYRINGE ONE (18:40)
[2016-09-24] MEDS ORDERED: BISACODYL 10 MG SUPP PR PRN (19:00)
[2016-09-24] MEDS ORDERED: DOCUSATE SODIUM 100 MG CAP PO PRN (19:00)
[2016-09-24] MEDS ORDERED: NA PHOSPHATE/BIPHOS 133 ML ENEMA PR PRN (19:00)
[2016-09-24] MEDS: FENTAnyl 50 MCG/ML VIAL IV PRN ×2 (19:28→19:36)
[2016-09-24] MEDS: D5W-0.45 NACL + KCL 20 MEQ 1,000 ML IV SCH (20:22)
[2016-09-25 00:45] VITALS: BP 132/89; PULSE 77; RESP 18
[2016-09-25] MEDS: HYDROmorphONE 1 MG/ML SYG IV PRN ×5 (00:45→18:12)
[2016-09-25] MEDS: D5W-0.45 NACL + KCL 20 MEQ 1,000 ML IV SCH (04:59)
[2016-09-25 05:00] VITALS: BP 132/88; PULSE 87; RESP 18
[2016-09-25 05:15] LABS: BASOPHIL # 0.1 10^3/ul (0.0-0.1); BASOPHILS % 0.7 % (0.0-2.0); EOSINOPHILS # 0.1 10^3/ul (0.0-0.5); EOSINOPHILS % 0.8 % (0.0-7.0); HEMATOCRIT 36.1 % (37.0-47.0); HEMOGLOBIN 12.3 g/dl (12.0-16.0); LYMPHOCYTES # 3.2 10^3/ul (0.8-2.9); LYMPHOCYTES % 27.2 % (15.0-51.0); MEAN CORPUSCULAR HEMOGLOBIN 32.7 pg (29.0-33.0); MEAN CORPUSCULAR HGB CONC 34.1 g/dl (32.0-37.0); MEAN CORPUSCULAR VOLUME 95.9 fl (82.0-101.0); MEAN PLATELET VOLUME 7.9 fl (7.4-10.4); MONOCYTE # 0.7 10^3/ul (0.3-0.9); MONOCYTES % 5.6 % (0.0-11.0); NEUTROPHIL # 7.7 10^3/ul (1.6-7.5); NEUTROPHILS % 65.7 % (39.0-77.0); PLATELET COUNT 345 10^3/UL (140-440); RED BLOOD COUNT 3.77 10^6/ul (4.20-5.40); RED CELL DISTRIBUTION WIDTH 13.8 % (11.5-14.5); UNCORRECTED WBC 11.8 10^3/ul (4.8-10.8); WHITE BLOOD COUNT 11.8 10^3/ul (4.8-10.8)
[2016-09-25 05:26] LABS: CONDITION 1
[2016-09-25 05:32] LABS: ALBUMIN 3.8 g/dl (3.3-4.9)
[2016-09-25 05:33] LABS: POTASSIUM 3.2 mmol/L (3.5-5.1)
[2016-09-25 05:35] LABS: ALBUMIN/GLOBULIN RATIO 1.22; BILIRUBIN,INDIRECT 0.9 mg/dl (0-1.1); BILIRUBIN,TOTAL 0.9 mg/dl (0.2-1.3); CREATININE 0.46 mg/dl (0.44-1.00); TOTAL PROTEIN 6.9 g/dl (6.1-8.1)
[2016-09-25 07:33] VITALS: BP 126/80; RESP 16
[2016-09-25] MEDS: HYDROCHLOROTHIAZIDE 25 MG TAB PO SCH (08:28)
[2016-09-25] MEDS ORDERED: ENOXAPARIN 40 MG/0.4 ML SYG SC SCH (09:00)
[2016-09-25] MEDS ORDERED: FAMOTIDINE 20 MG INJ IV SCH (09:00)
[2016-09-25] MEDS ORDERED: SENN-53 PO (11:44)
[2016-09-25] MEDS ORDERED: AMLO5TAB4 PO (11:44)
[2016-09-25] MEDS ORDERED: HYDR-906 PO (11:44)
--- NOTE | 2016-09-25 13:47 | PDOCDIS ---
Discharge Instructions DIAGNOSIS Discharge Diagnosis: 1. acute cholecystitis 2. essential hypertension CONDITION Patient Condition: Stable HOME CARE INSTRUCTIONS: Diet Instructions: Low Fat /CholesterolSpecial Diet: reduced calorie (1800) FOLLOW UP/APPOINTMENTS Appointments 1. Follow up with Dr. Jayce Michelle in one week OTHER ORDERS: Other Orders: 1. Call Dr. Michelle if you have worsening abdominal pain/nausea/vomiting MERA LIZARRAGA Sep 25, 2016 13:47
--- NOTE | 2016-09-25 15:56 | PN ---
Date/Time of Note Date/Time of Note DATE: 09/25/16 TIME: 07:57 Assessment/Plan Lines/Catheters IV Catheter Type (from Nrs): Peripheral IV Assessment/Plan Assessment/Plan [facility] Progress Note Date of Service: 09/25/16 Today's Impression & Plan: Overall doing well post op without major issues. No major wound problems. With above assessment, I've recommended the following for today: 1. OK to d/c from my standpoint 2. Please include the following in patient's discharge instructions: Please call [phone] if any of fever, nausea, vomiting, discharge from wound , wound redness, increase or sudden pain, blood in stool or vomit, or any other unusual signs or symptoms. Also, please call the same number in a few days to schedule an appointment for your follow up visit. Patient may remove dressings tomorrow. Showers OK starting tomorrow. No swimming , hot tub or bath for 2 weeks. No lifting more than 25 lbs for 8 weeks. Thank you again for your great care of this very pleasant patient and wonderful family. If there are any questions, please feel free to call me at [phone]. TOTAL VISIT TIME: 20 minutes of which more than half was spent in [id number] discussion with the patient, possibly including family, as well as coordination of care between multiple physicians and providers. Disclaimer: Inadvertent spelling or grammatical errors are likely due to EHR/ dictation software use and do not reflect on the overall quality of patient care. Updated Clinical Summary: The patient is a very pleasant 25-year-old young lady with BMI 32.2 and otherwise healthy without known other medical issues, who was admitted to [facility] through ED on 09/23/2016 with signs and symptoms consistent with acute cholecystitis versus symptomatic biliary. Note that patient has had pain for the last 6 years and has had multiple attempts at accessing care through the ED. S/p a somewhat challenging but otherwise uncomplicated laparoscopic cholecystectomy on 09/24/16 with findings of early acute cholecystitis. Past and Present Comorbidities: 1. Acute cholecystitis; s/p lap cele 09/24/16 2. -induced hypertension 3. BMI 32.2 4. Hypertension Subjective: No major events or complaints; no abd pain and under control with medications; no n/v/d; no sob or cp; + flatus; - BM; - activity Objective: Vitals: See below Exam: GENERAL: On exam, the patient was sitting in a chair and appeared to be comfortable and in no acute distress. ABDOMEN: Soft, nontender and nondistended. Incision dressings are clean, dry and intact without any evidence of obvious underlying erythema, edema, discharge , or hernia. There are no peritoneal signs or guarding. SKIN: Skin appears to be pink and feels warm to touch. NEUROLOGIC: Patient is awake, alert, and follows commands appropriately. Exam/Review of Systems Vital Signs Vitals Vital Signs Date Time Temp Pulse Resp B/P Pulse Ox O2 Delivery O2 Flow Rate FiO2 09/25/16 07:33 98.3 72 16 126/80 100 09/25/16 05:00 Nasal Cannula 09/25/16 00:45 2.0 Intake and Output 09/24/16 09/24/16 09/25/16 15:00 23:00 07:00 Intake Total 2100 ml 800 ml Output Total 1250 ml Balance 850 ml 800 ml Results Result Diagram: 09/25/16 0420 09/25/16 0420 ALDO DUFFY M.D. Sep 25, 2016 15:56
--- NOTE | 2016-09-26 06:45 | DS ---
DATE OF ADMISSION: 09/24/2016 DATE OF DISCHARGE: 09/25/2016 CONSULTANTS: Jayce Michelle MD DISCHARGE DIAGNOSES: 1. Acute cholecystitis. 2. Essential hypertension. 3. Hypokalemia, likely secondary to vomiting. HOSPITAL COURSE: This is a 25-year-old female with no reported past medical history, who came to [facility] secondary to complaints of right upper quadrant abdominal pain with assoc iated vomiting. She did report that she had similar symptoms like this 2 days prior to this admissi on. She did come to [facility] for the aforementioned issues. She was found to h ave high blood pressure with also possible cholecystitis. Of note, 2 days prior to this admission, she did go to [facility] and had an ultrasound on 09/23/2016, that did show acute cholecystitis. She was, however, sent home. When she came back, she was still with presenting abdo gumaro pain. She was consulted by a general surgeon and she was placed on antibiotics as well as IV hydration. She did undergo laparoscopic cholecystectomy and did tolerate the procedure well. She w as placed on analgesics. During the course of her stay, she did improve. She did report less pain on her abdomen. She was instructed to follow up with the surgeon within a week. She was placed on antihypertensives as needed for her high blood pressure, but likely her high blood pressure was seco ndary to her pain. As previously mentioned during her course of stay, she did improve. The plan of care was discussed with the patient and patient did verbalize her understanding. On the day of dis charge, the patient was in stable condition. DISCHARGE PHYSICAL EXAMINATION: VITAL SIGNS: Stable. CONDITION: Stable. DISCHARGE PLAN 1. Diet is low fat, low cholesterol. 2. The patient to follow up with Dr. Jayce Michelle within a week. 4. The patient to follow with Dr. Michelle if she has worsening abdominal pain, nausea or vomiting. DISCHARGE MEDICATIONS: 1. Senna 1 tab p.o. b.i.d. as needed for constipation. 2. Amlodipine 5 mg p.o. daily. 3. Bentyl 20 mg p.o. q.i.d. 4. Zofran 4 mg p.o. q. 8 hours as needed for nausea. 5. tablet 1 tab p.o. daily. DISCHARGE PROCESS TIME: 40 minutes. Discussed plan of care with Dr. Murguia. Dictated By: MERA LIZARRAGA NP for KIMBERLI MAR/PIETER Conf#: [id number] DID#: [id number]
== END 2016-09-25 20:20 | disposition home or self-care (01) | DRG 419 ==
LOC: E/R 03:06 → PP2 04:10
PROVIDERS: ADMIT Family Medicine; ATTEND Family Medicine
PROC: 0FT44ZZ Resection of Gallbladder, Percutaneous Endoscopic Approach (ICD-10-PCS; principal; 2016-09-24 17:00)
DX: K80.00 Calculus of gallbladder with acute cholecystitis without obstruction (principal); I10 Essential (primary) hypertension; E87.6 Hypokalemia; E66.9 Obesity, unspecified; Z68.32 Body mass index [BMI] 32.0-32.9, adult
CPT/HCPCS: 71010; 80053; 81001; 81003; 83690; 83735; 84484; 84703; 85025; 85610; 85730; 86850; 86900; 86901; 88304; 93005; 96365; 96375; 96376; J0295; J1170; J1650; J2175; J2250; J2270; J2370; J2405; J2543; J2710; J3010; J3480; J7030

== ENCOUNTER 2016-10-10 10:22 | Outpatient (CLI) | payer SELFPAY ==
[~2016-10-10] VITALS: Ht 162.6 cm; Wt 84.5 kg
[~2016-10-10 10:22] MED LIST changes: -CIPR500T4 PO; -HYDR-762 PO; -HYDR-902 PO; -ONDA4TAB35 PO; -ONDA4TAB8 PO; +SENN-53 PO
[2016-10-10 10:27] VITALS: BP 124/75; PULSE 80; RESP 18; Ht 162.6 cm; Wt 84.5 kg
--- NOTE | 2016-10-10 13:55 | PN ---
Date/Time of Note Date/Time of Note DATE: 10/10/16 TIME: 12:22 Assessment/Plan Assessment/Plan Assessment/Plan [facility] Progress Note Date of Service: 10/10/16 Today's Impression & Plan: Overall doing well post op without major issues. No major wound problems. With above assessment, I've recommended the following for today: 1. F/u with PCP 2. F/u with us prn Thank you again for your great care of this very pleasant patient and wonderful family. If there are any questions, please feel free to call me at [phone]. TOTAL VISIT TIME: 20 minutes of which more than half was spent in [id number] discussion with the patient, possibly including family, as well as coordination of care between multiple physicians and providers. Disclaimer: Inadvertent spelling or grammatical errors are likely due to EHR/ dictation software use and do not reflect on the overall quality of patient care. Updated Clinical Summary: The patient is a very pleasant 25-year-old young lady with BMI 32.2 and otherwise healthy without known other medical issues, who was admitted to [facility] through ED on 09/23/2016 with signs and symptoms consistent with acute cholecystitis versus symptomatic biliary. Note that patient has had pain for the last 6 years and has had multiple attempts at accessing care through the ED. S/p a somewhat challenging but otherwise uncomplicated laparoscopic cholecystectomy on 09/24/16 with findings of early acute cholecystitis. Past and Present Comorbidities: 1. Acute cholecystitis; s/p lap cele 09/24/16 2. -induced hypertension 3. BMI 32.2 4. Hypertension Subjective: No major events or complaints since d/c; no major abd pain; no n/v/d; no sob or cp; + flatus; + BM; + activity Objective: Vitals: See below Exam: GENERAL: On exam, the patient was sitting in a chair and appeared to be comfortable and in no acute distress. ABDOMEN: Soft, nontender and nondistended. Incisions are clean, dry and intact without any evidence of obvious erythema, edema, discharge, or hernia. There are no peritoneal signs or guarding. SKIN: Skin appears to be pink and feels warm to touch. NEUROLOGIC: Patient is awake, alert, and follows commands appropriately. Exam/Review of Systems Vital Signs Vitals Vital Signs Date Time Temp Pulse Resp B/P Pulse Ox O2 Delivery O2 Flow Rate FiO2 10/10/16 10:27 98.4 80 18 124/75 100 Room Air ALDO DUFFY M.D. Oct 10, 2016 13:55
== END 2016-10-10 16:45 | disposition home or self-care (01) ==
LOC: HPC 10:22
PROVIDERS: ATTEND Transplant Surgery
DX: K81.9 Cholecystitis, unspecified (principal); I10 Essential (primary) hypertension
CPT/HCPCS: G0463